=== PATIENT | male | born 1940 | race Caucasian/White ===

== ENCOUNTER → 2023-04-11 10:03 | Outpatient (BNVA) | payer MEDICARE, SELFPAY | PROVIDERS: PCP Nurse Practitioner Family; Referring Provider Nurse Practitioner Family; Visit Provider Psychiatry & Neurology Neurology | DX: R25.1 Tremor, unspecified (principal); M43.6 Torticollis; I48.91 Unspecified atrial fibrillation; Z79.01 Long term (current) use of anticoagulants; Z87.442 Personal history of urinary calculi | CPT/HCPCS: 82565; 84520; 99203 ==

== ENCOUNTER 2023-05-11 10:34 | Outpatient (CLI) | payer MEDICARE, MEDICAID, SELFPAY ==
--- NOTE | 2023-05-11 11:00 | MR_ITS ---
WS: [id number] MRI HEAD WITH CONTRAST TECHNIQUE: Sagittal T1, T2 axial, T2 axial FLAIR, axial susceptibility weighted imaging, axial diffus ion weighted images, and coronal T2 images were obtained. Pre and post-T1 axial and post T1 coronal i mages. ADC and FSPGR images. CLINICAL INFORMATION: R25.1 - Tremor, unspecified COMPARISON: None. FINDINGS: No evidence of restricted diffusion to suggest acute ischemia. Ventricular system and basal cisterns are patent. No hemosiderin on the susceptibility weighted images. Normal posterior fossa. Normal vasc ular flow voids at the skull base. No extra-axial fluid collections. No evidence of mass or mass effe ct. Paranasal sinuses are well aerated. Mastoid air cells are well aerated. Small chronic lacunar infarct RIGHT cerebellum anteriorly. Mild small vessel changes. Mild parenchymal volume loss. Normal optic c hiasm and pituitary infundibulum. Mild to moderate symmetric atrophy temporal lobes and hippocampal f ormations. Normal posterior nasopharynx. No abnormal gadolinium enhancement. Normal dural venous sinuses. IMPRESSION: 1. No evidence of restricted diffusion to suggest acute ischemia. 2. Mild small vessel changes with mild parenchymal volume loss. 3. Tiny chronic lacunar infarct RIGHT cerebellum. 4. No hemosiderin on susceptibility-weighted images. 5. No abnormal intracranial enhancement. 6. Mild to moderate symmetric atrophy temporal lobes and hippocampal formations.
--- NOTE | 2023-05-11 11:45 | MR_ITS ---
WS: [id number] MR CERVICAL SPINE WO/W DATE OF EXAMINATION: 04/10/2023 COMPARISON: None. HISTORY: TECHNIQUE: Sagittal T1, T2 and T2 inversion recovery; axial T2, T2 gradient and fiesta. Post gadolini um imaging with fat saturation technique. FINDINGS: Moderate spondylitic changes. Disc protrusions worse at C3-C4 C4-C5 and C5-C6. Cord signal appears normal. Cervical curve. C2-3: Mild disc osteophyte complex with endplate ridging. Mild to moderate LEFT and no significant RI GHT foraminal narrowing. Moderate facet arthropathy. C3-4: Disc osteophyte complex with mild central canal stenosis. Moderate facet arthropathy. Severe LE FT and moderate RIGHT bony foraminal narrowing. Mild central canal stenosis. C4-5: Disc osteophyte complex with endplate ridging. Moderate LEFT and mild RIGHT bony foraminal narr owing. Moderate LEFT arthropathy. Mild central canal stenosis. C5-6: Disc osteophyte complex with endplate ridging. Severe RIGHT and moderate LEFT bony foraminal na rrowing. Moderate facet arthropathy. C6-7: Mild disc osteophyte complex with endplate ridging. Moderate to severe LEFT and mild RIGHT bony foraminal narrowing. Moderate facet arthropathy. Spinal canal is patent. C7-T1: Mild disc osteophytic ridging. Spinal canal and foramen are patent. No abnormal gadolinium enhancement. IMPRESSION: 1. No abnormal gadolinium enhancement. 2. No lesions within the cervical cord considering motion artifact. 3. Mild central canal stenosis due to disc osteophyte complexes at C3-C4 and C4-C5 4. Moderate to severe bony foraminal narrowing worse at LEFT C3-C4, RIGHT C4-C5, RIGHT C5-C6 and LEF T C6-C7. 5. Multilevel facet arthropathy.
[2023-05-11] MEDS: gadobenate dimeglumine 20 mL vial IV (11:58)
== END 2023-05-11 10:35 | disposition home or self-care (01) ==
PROVIDERS: PCP Nurse Practitioner Family; Visit Provider Psychiatry & Neurology Neurology
DX: R25.1 Tremor, unspecified (principal); Z86.73 Personal history of transient ischemic attack (TIA), and cerebral infarction without residual deficits; M48.02 Spinal stenosis, cervical region; M47.812 Spondylosis without myelopathy or radiculopathy, cervical region
CPT/HCPCS: 70553; 72156; A9577

== ENCOUNTER → 2023-05-31 11:56 | Outpatient (BNVA) | payer MEDICARE, MEDICAID, SELFPAY | PROVIDERS: PCP Nurse Practitioner Family; Visit Provider Specialist | DX: G24.3 Spasmodic torticollis (principal); Z71.89 Other specified counseling | CPT/HCPCS: 64616 ==

== ENCOUNTER → 2023-09-27 08:56 | Outpatient (BNVA) | payer MEDICARE, MEDICAID, SELFPAY | PROVIDERS: PCP Nurse Practitioner Family; Visit Provider Specialist | DX: G24.3 Spasmodic torticollis (principal); M54.2 Cervicalgia | CPT/HCPCS: 64616; 72050; 99204 ==

== ENCOUNTER → 2023-12-27 09:09 | Outpatient (BNVA) | payer MEDICARE, MEDICAID, SELFPAY | PROVIDERS: PCP Nurse Practitioner Family; Visit Provider Specialist | DX: G24.3 Spasmodic torticollis (principal) | CPT/HCPCS: 64616 ==